=== PATIENT | male | born 2000 | race Caucasian/White ===

== ENCOUNTER 2020-08-07 17:50 | Emergency (ER) | payer OTHER, SELFPAY ==
--- NOTE | ~2020-08-07 | XR_ITS ---
EXAMINATION: 1. RADIOGRAPHS LEFT KNEE 2. RADIOGRAPHS LEFT TIBIA/FIBULA CLINICAL INFORMATION: Pain. Work injury. COMPARISON: None TECHNIQUE: 2 views of the left knee and 2 views of the left tibia/fibular were obtained. FINDINGS: No fracture or dislocation of the left knee. No suprapatellar joint effusion. Joint spaces are well-maintained without appreciable degenerative changes of the left knee. No focal soft tissue swelling of the anterior knee. No fracture of the left tibia or fibula. The left ankle is grossly unremarkable. XR/XR knee LT 2V IMPRESSION: Unremarkable radiographs of the left knee and left tibia/fibula.
--- NOTE | ~2020-08-07 | XR_ITS ---
EXAMINATION: 1. RADIOGRAPHS LEFT KNEE 2. RADIOGRAPHS LEFT TIBIA/FIBULA CLINICAL INFORMATION: Pain. Work injury. COMPARISON: None TECHNIQUE: 2 views of the left knee and 2 views of the left tibia/fibular were obtained. FINDINGS: No fracture or dislocation of the left knee. No suprapatellar joint effusion. Joint spaces are well-maintained without appreciable degenerative changes of the left knee. No focal soft tissue swelling of the anterior knee. No fracture of the left tibia or fibula. The left ankle is grossly unremarkable. XR/XR tibia fibula LT 2V IMPRESSION: Unremarkable radiographs of the left knee and left tibia/fibula.
[2020-08-07 19:38] VITALS: BP 127/72; PULSE 112; RESP 22; TEMP 37.1; O2SAT 96; BMI 32.5
[2020-08-07 19:44] VITALS: BP 136/74; PULSE 114; PULSE 86; RESP 24; TEMP 37.1; O2SAT 96
--- NOTE | 2020-08-07 20:05 | ED.GENADULT ---
HPI - General Adult General Chief complaint: Upper Respiratory Symptoms Stated complaint: Work Injury/Exposure to covid Time Seen by Provider: 08/07/20 19:50 Source: patient Mode of arrival: ambulatory Limitations: no limitations History of Present Illness HPI narrative: Patient tells me that his mom at home is COVID positive. For the last 24-48 hours he has had symptoms of cough, malaise, headache. No fevers or chills or shortness of breath or chest pain. 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 He now has pain and swelling which is worsened with weight-bearing. Related Data Home Medications Medication Instructions Recorded Confirmed No Known Home Meds 08/07/20 08/07/20 Allergies Allergy/AdvReac Type Severity Reaction Status Date / Time Penicillins [PCN] Allergy Intermediate RASH, Verified 08/07/20 19:37 ITCHING Review of Systems Review of Systems: Yes all other systems are reviewed and are negative Constitutional: Constitutional: Reports no additional constitutional complaints, Denies body ache(s), Denies chills, Denies fever(s), Reports headache(s), Reports malaise and Denies weakness Eyes: Eyes: Reports no additional eye complaints and Denies change in vision ENT: Reports system reviewed and no additional complaints, except as documented, Denies dizziness, Reports headache(s), Denies nasal congestion, Denies nasal discharge and Denies neck pain Cardiovascular: Cardiovascular: Reports no additional cardiovascular complaints, Denies chest pain, Denies leg edema and Denies dyspnea Respiratory: Respiratory: Reports no additional respiratory complaints, Reports cough and Denies dyspnea Gastrointestinal: Gastrointestinal: Reports no additional gastrointestinal complaints, Denies abdominal pain, Denies diarrhea, Denies nausea and Denies vomiting Genitourinary: Genitourinary: Denies urinary incontinence Musculoskeletal: Musculoskeletal: Reports no additional musculoskeletal complaints, Denies back pain, Reports arthralgias, Reports joint swelling, Denies neck pain, Denies numbness and Denies tingling Integumentary/Breasts: Skin/Breast: Reports system reviewed and no additional complaints, except as docu and Denies rash Neurologic: Reports system reviewed and no additional complaints, except as documented, Denies Abnormal speech present, Denies dizziness, Reports headache(s), Denies numbness, Denies tingling and Denies weakness PMFSH Past Medical History Attestation statement: The following information was validated with the patient. Source: old records reviewed and nursing notes reviewed Medical History Appendicitis Social History Social History Alcohol intake: never Smoking Status: Current every day smoker Smoked in Last 30 Days: Yes Use of substances other than those prescribed or required for medical reasons: Yes Substance Use Type: Marijuana Substance Use Frequency: Daily Last Used Substance: Hours (ago) Any prior treatment program specific to substance use: No Advance Directives: No Advance Directives Information Provided: No Physical Exam Vital Signs: Vital Signs: Last Vital Signs Temp 99.6 F 08/07/20 21:40 Pulse 102 H 08/07/20 21:40 Resp 20 08/07/20 21:40 BP 124/68 08/07/20 21:40 Pulse Ox 98 08/07/20 21:40 Body Mass Index 32.5 Const: Other: Patient has mild tachycardia but tells me he is very anxious and with some deep breaths and relaxation is heart rate improved to 86 with no intervention General: cooperative, healthy appearing, comfortable and no acute distress Orientation/consciousness: patient oriented x3 Limitations: no limitations HENMT: Head: Yes normal to inspection Ears: hearing grossly normal bilaterally General nose exam: Normal external nose present Face and sinus: Yes normal facial exam Mouth: Normal oral and palatal mucosa present Throat: Yes posterior oropharynx normal Eyes: General: appearance normal, both eyes and all related structures Pupils: Equal, round and reactive pupils present Neck: Neck: Yes normal visual inspection Chest: Chest palpation & inspection: normal inspection of the chest Resp: Effort & Inspection: normal respiratory effort Auscultation: clear to auscultation bilaterally Cardio: Rate: regular rate Rhythm: regular rhythm Peripheral pulses: Peripheral pulses 2+ throughout GI: Inspection: Yes normal to inspection Palpation (GI): Soft to palpation and nontender Auscultation: normal bowel sounds Back/Spine/Pelvis: Thoracic/Lumbar Spine: thoracic and lumbar spine normal to inspection Skin: General skin exam: no rashes or lesions noted Neuro: General: patient oriented x3, no focal motor deficits and normal sensation to monofilament Cranial nerves: Yes Equal, round and reactive pupils present Cognition (Neuro): normal cognition Speech: No Abnormal speech present Gait exam (Neuro): Normal gait present Motor exam (neuro): 5/5 motor strength present throughout Extrem: Other: To the left knee at the medial and lateral aspect there is ecchymosis. There is no appreciated swelling, erythema, warmth. There is some mild tenderness. Patient has full range of motion of the knee. There is also abrasion to the left lower extremity over the anterior aspect with full range of motion and no ecchymosis or tenderness. General: Yes normal to inspection Course Course Course Narrative: Patient here with COVID symptoms. Mom home is positive. Will check COVID screen. Well-appearing, lung sounds clear throughout. Stable vital signs. Also complaining of left lower extremity pain and swelling status post work injury yesterday. Will check imaging. 2129-Imaging unremarkable. COVID +. Stable saturations, LS CTA. NO complaints of SOB/chest pain. Reviewed worrisome signs and symptoms and when to return to the emergency department. Comfortable discharge home. Medical Decision Making Medical Records Medical records reviewed: Yes I reviewed the patient's medical records. Lab Data Lab results reviewed: Yes I reviewed the patient's lab results. Labs: Lab Results 08/07/20 Range/Units 19:54 Coronavirus (PCR) POSITIVE A (Negative) Influenza Type A (PCR) NEGATIVE (Negative) Influenza Type B (PCR) NEGATIVE (Negative) RSV RNA Qual (PCR) NEGATIVE (Negative) Imaging Data knee/tibia/fibula left x-ray: Attestation: I personally reviewed and interpreted this imaging study as follows: Radiologist's impression: [address] [id number] ReportSigned Patient: Tara Polanco YMR#: [id number]: [id number]:[id number]/Sex: 20 / MADM Date: 08/07/20Loc: [email or web address].EDAttending Dr: Ordering Physician: KRISSY FREITAS NP Date of Service: 08/07/20 Procedure(s): XR knee LT 2V Accession Number(s): [id number] cc: KRISSY FREITAS NP~ EXAMINATION: 1. RADIOGRAPHS LEFT KNEE 2. RADIOGRAPHS LEFT TIBIA/FIBULA CLINICAL INFORMATION: Pain. Work injury. COMPARISON: None TECHNIQUE: 2 views of the left knee and 2 views of the left tibia/fibular were obtained. FINDINGS: No fracture or dislocation of the left knee. No suprapatellar joint effusion. Joint spaces are well-maintained without appreciable degenerative changes of the left knee. No focal soft tissue swelling of the anterior knee. No fracture of the left tibia or fibula. The left ankle is grossly unremarkable. XR/XR knee LT 2V IMPRESSION: Unremarkable radiographs of the left knee and left tibia/fibula. Discharge Plan Discharge Clinical Impression: COVID-19 Contusion Qualifiers: Encounter type: initial encounter Contusion area: knee Laterality: left Qualified Code(s): S80.02XA - Contusion of left knee, initial encounter Patient Disposition: Home, Self-Care Instructions: Contusion in Adults (ED), COVID-19 (Coronavirus Disease 2019) (ED) Additional Instructions: Your test for COVID is positive You will need to quarentine for a total of 10 days from when your symptom started and they must be resolved prior to return to work Prescriptions: No Action No Known Home Meds RF: 0 Referrals: Physician,None [Primary Care Provider] - 2 days Stand Alone Forms: Work/School Release Interventions: ED Discharge Assessment Last Done: 08/07/20 21:42 Discharge Date/Time: 08/07/20 21:43
[2020-08-07 20:46] LABS: Influenza A PCR NEGATIVE (Negative); Influenza B PCR NEGATIVE (Negative); Resp Syncy Virus RNA Qual PCR NEGATIVE (Negative)
[2020-08-07 21:15] LABS: SARS COV2 PCR INHOUSE POSITIVE (Negative)
[2020-08-07 21:40] VITALS: BP 124/68; PULSE 102; RESP 20; TEMP 37.6; O2SAT 98
== END 2020-08-07 21:43 | disposition home or self-care (01) ==
PROVIDERS: Emergency Provider Emergency Medicine
DX: S80.02XA Contusion of left knee, initial encounter (principal); U07.1 COVID-19; M25.562 Pain in left knee; X50.0XXA Overexertion from strenuous movement or load, initial encounter; X50.3XXA Overexertion from repetitive movements, initial encounter; Y93.9 Activity, unspecified; Y92.9 Unspecified place or not applicable; Y99.0 Civilian activity done for income or pay; F17.200 Nicotine dependence, unspecified, uncomplicated; Z71.6 Tobacco abuse counseling; F12.90 Cannabis use, unspecified, uncomplicated
CPT/HCPCS: 0241U; 36415; 73560; 73590; 99285

== ENCOUNTER 2021-09-29 08:08 | Emergency (ER) | payer OTHER, SELFPAY ==
[2021-09-29 08:19] VITALS: BP 130/78; PULSE 83; RESP 18; TEMP 36.3; O2SAT 97; BMI 27.0
[2021-09-29 08:38] VITALS: BP 119/76; PULSE 62; RESP 15; TEMP 36.4; O2SAT 95
[2021-09-29 08:55] LABS: COVID-19 Test Negative (Negative); IDNOW Serial# 16C4AD1C; Influenza A Negative (Negative); Influenza B2 Negative (Negative)
--- NOTE | 2021-09-29 09:08 | ED.NAVMDI ---
HPI - Nausea/Vomiting/Diarrhea General Chief complaint: Nausea/Vomiting/Diarrhea Stated complaint: Body aches/Vomiting/Diarrhea Time Seen by Provider: 09/29/21 09:08 Source: patient and paraprofessional interpreter Mode of arrival: ambulatory Limitations: no limitations History of Present Illness HPI Narrative: 21-year-old otherwise healthy male presents to the ER with 4 days of nausea, vomiting and diarrhea. He states he was recently around his family member who had similar symptoms last week. He states the last time he vomited was yesterday. He had nonbloody loose stool again this morning and came to the ER for further evaluation. He denies any abdominal pain just an upset stomach and nausea when he smells certain foods. He denies any fever or chills. He states the worst part is the diffuse body aches and generally feeling unwell. MD elicited complaint: nausea, vomiting and diarrhea Onset (ago): day(s) (4) Description of vomiting: food contents and watery Description of diarrhea: loose Associated nausea: Yes Associated abdominal pain: No Location of pain: diffuse Pain consistency: intermittent Severity: mild Quality: aching Exacerbating factors: none Relieving factors: none Associated symptoms: myalgias, loss of appetite, malaise and nausea/vomiting Related Data Previous Rx's Medication Instructions Recorded ondansetron 4 mg disintegrating 4 mg PO Q8H PRN #5 tab 09/29/21 tablet Allergies Allergy/AdvReac Type Severity Reaction Status Date / Time Penicillins [PCN] Allergy Intermediate RASH, Verified 09/29/21 08:19 ITCHING Review of Systems Review of Systems: Constitutional: No Fever, No Chills ENT/Mouth: No sore throat, No Rhinorrhea, No Swallowing Difficulty Cardiovascular: No Chest Pain, No SOB Respiratory: No Cough, No Sputum, No Wheezing, No dyspnea Gastrointestinal: + Nausea, +Vomiting, + Diarrhea, No abdominal Pain, No Hematochezia, No Melena Genitourinary: No Dysuria, No Urinary Frequency Musculoskeletal: No joint pain, + Myalgias Skin: No Skin Lesions, No rash Neuro: No Weakness, No Numbness, No Dizziness, No Headache Heme/Lymph: No Bruising, No Lymphadenopathy Gastrointestinal: Gastrointestinal: Reports nausea PMFSH Past Medical History Medical History Appendicitis Social History Social History Alcohol intake: never Substance Use Type: Marijuana Advance Directives: No Advance Directives Information Provided: No Physical Exam Vital Signs: Vital Signs: Last Vital Signs Temp 97.5 F 09/29/21 08:38 Pulse 62 09/29/21 08:38 Resp 15 09/29/21 08:38 BP 119/76 09/29/21 08:38 Pulse Ox 95 09/29/21 08:38 BMI result Body Mass Index 27.0 Appearance: Alert. Oriented X3. No acute distress. Eyes: Pupils equal, round and reactive to light. ENT: Pharynx normal. Neck: Normal inspection. Neck supple. CVS: Normal heart rate and rhythm. Pulses normal. Respiratory: No respiratory distress. Breath sounds normal. Abdomen: Soft and nontender. +BS x4 Skin: Skin warm and dry. Normal skin color. Normal skin turgor. No rashes. Extremities: No lower extremity edema. Neuro: Oriented X 3. No motor deficit. No sensory deficit. Course Course Course Narrative: 21-year-old male presents to the ER with 4 days of intermittent nausea, vomiting, diarrhea. Last episode of vomiting was yesterday. He is tolerating p.o. today but had all episode of loose stool. His abdomen exam is benign. He appears well hydrated and well nourished. Nontoxic appearing. His vital signs are normal. He is negative for influenza a and COVID-19. Symptoms most likely due to a viral gastroenteritis given his known sick contacts. At this time he is tolerating p.o. any stable for discharge home with supportive care. MDM - Nausea/Vomiting/Diarrhea Lab Data Labs: Lab Results 09/29/21 09/29/21 Range/Units 08:25 08:25 COVID-19 ([facility]) Negative (Negative) COVID-19 Clin Com See Note Influenza Type A ([facility]) Negative (Negative) Influenza Type B ([facility]) Negative (Negative) Influenza A & B Note See Note Discharge Plan Discharge Clinical Impression: Gastroenteritis Patient Disposition: Home, Self-Care Instructions: Gastroenteritis (DC) Additional Instructions: You are negative for Influenza & COVID-19./ You most likely have a viral GI bug also known as gastroenteritis. Treatment is supportive care, symptoms usually resolve on their own in 48-72 hours. Recommend rest and plenty of oral hydration. Stick to a bland diet like soup and toast while you are not feeling well. Take the prescribed medication as needed for nausea. Recommend over the counter Pepto Bismol or Imodium for upset stomach and diarrhea. Follow up with your doctor as needed. If you develop new or worsening symptoms call 911 or come back to the ER for further evaluation. ' Eres negativo para Influenza y COVID-19./ Lo m?s probable es que tenga un bicho GI viral, tambi?n conocido mary gastroenteritis. El tratamiento es atenci?n de apoyo, los s?ntomas generalmente se resuelven por s? solos en 48 a 72 horas. Recomendable reposo y danielle hidrataci?n oral. Siga tavon dieta blanda mary sopa y tostadas mientras no se sienta camryn. [place] el medicamento recetado seg?n sea necesario para las n?useas. Recomiende Pepto Bismol o Imodium de venta sanjuanita para el malestar estomacal y la diarrea. Susy un seguimiento con oliveros m?dico seg?n sea necesario. Si desarrolla s?ntomas nuevos o que empeoran, llame al 911 o regrese a la jayme de emergencias para tavon evaluaci?n adicional. Prescriptions: New ondansetron 4 mg tablet,disintegrating 4 mg PO Q8H PRN (Reason: nausea and vomiting) Qty: 5 0RF Stand Alone Forms: Work/School Release Print Language: Frisian
== END 2021-09-29 09:29 | disposition home or self-care (01) ==
PROVIDERS: Emergency Provider Emergency Medicine
DX: K52.9 Noninfective gastroenteritis and colitis, unspecified (principal); M79.10 Myalgia, unspecified site; Z20.822 Contact with and (suspected) exposure to COVID-19
CPT/HCPCS: 87502; 87635; 99283; 99284

== ENCOUNTER 2022-02-28 22:11 | Emergency (ER) | payer OTHER, SELFPAY ==
[2022-02-28 23:11] VITALS: BP 118/60; PULSE 71; RESP 16; TEMP 37; O2SAT 96; BMI 29.8
[2022-02-28] MEDS: Lidocaine 4 % Cream KIT 1 APPL TOPICAL (23:27)
--- NOTE | 2022-02-28 23:29 | ED_ITS ---
HPI - Wound/Laceration General Chief Complaint: Wound/Laceration Stated Complaint: hit head Time Seen by Provider: 02/28/22 23:20 Source: patient Mode of arrival: ambulatory Limitations: no limitations History of Present Illness HPI narrative: 22yo male no PMH hit head on low ceiling at 3pm today no LOC no AC therapy. Waiting at [facility] came here after wait. No vomiting, no headaches, has laceration on scalp. Vaccines UTD Onset (ago): hour(s) (8.5 hours ago) Location: scalp Place: home Patient tetanus UTD: Yes Context: accidental Associated symptoms: none Treatments prior to arrival: bandage Related Data Previous Rx's Medication Instructions Recorded ondansetron 4 mg disintegrating 4 mg PO Q8H PRN nausea and 09/29/21 tablet vomiting #5 tabs Allergies Allergy/AdvReac Type Severity Reaction Status Date / Time Penicillins [PCN] Allergy Intermediate RASH, Verified 09/29/21 08:19 ITCHING Review of Systems Review of Systems: Constitutional : No Fever, No Chills, Cardiovascular : No Chest Pain, No SOB Respiratory : No Dyspnea Gastrointestinal : No abdominal pain Musculoskeletal : No Joint Swelling Skin : No rash, positive skin laceration Neuro : No Weakness, No Numbness Psych : No SI/HI PMFSH Past Medical History Attestation statement: The following information was validated with the patient. Medical History Appendicitis Social History Social History (Updated 02/28/22 @ 23:30 by Solange Durán DO) Alcohol intake: never Patient Tobacco Use Status: Never used Tobacco Substance Use Type: Marijuana Physical Exam Vital Signs: Vital Signs: Last Vital Signs Temp 98.6 F 02/28/22 23:11 Pulse 71 02/28/22 23:11 Resp 16 02/28/22 23:11 BP 118/60 02/28/22 23:11 Pulse Ox 96 02/28/22 23:11 O2 Del Method 02/28/22 23:11 BMI result Body Mass Index 29.8 Appearance: Alert. Oriented X3. No acute distress. Eyes: Pupils equal, round and reactive to light. ENT: Pharynx normal. on frontoparietal scalp horizontal 6cm laceration linear and superficial bleeding controlled Neck: Normal inspection. Neck supple. CVS: Pulses normal. Respiratory: No respiratory distress. Abdomen: Soft and nontender. Skin: Skin warm and dry. Normal skin color. Extremities: No lower extremity edema. Neuro: Oriented X 3. No motor deficit. No sensory deficit. MDM - Wound/Laceration MDM Narrative Medical decision making narrative: 22 yo male with scalp laceration of 8.5 hours old. no vomiting no headache GCS 15 no AC therapy - at this time no indication for imaging. Will need wound repair. Vaccines UTD Procedures Laceration Laceration 1: Site: scalp Size (cm): 6 Description: linear Depth: simple, single layer Local Anesthetic: other anesthetic (LMX) Pre-repair: wound explored Skin layer closed with: other ( 5 carmen) Discharge Plan Discharge Clinical Impression: Laceration Patient Disposition: Home, Self-Care Instructions: Staple Care (ED), Head Laceration (ED) Additional Instructions: return to ED for any worsening symptoms or concerns okay to shower only carmen out in 10 days Prescriptions: No Action ondansetron 4 mg tablet,disintegrating 4 mg PO Q8H PRN (Reason: nausea and vomiting) Qty: 5 0RF Stand Alone Forms: Work/School Release
== END 2022-02-28 23:44 | disposition home or self-care (01) ==
LOC: HO.ED 23:43
PROVIDERS: Emergency Provider Emergency Medicine
DX: S01.01XA Laceration without foreign body of scalp, initial encounter (principal); W22.09XA Striking against other stationary object, initial encounter; Y93.89 Activity, other specified; Y92.009 Unspecified place in unspecified non-institutional (private) residence as the place of occurrence of the external cause; Y99.9 Unspecified external cause status
CPT/HCPCS: 12002; 99282; 99284

== ENCOUNTER 2022-03-21 14:13 | Emergency (ER) | payer OTHER, SELFPAY ==
[2022-03-21 14:31] VITALS: BP 110/64; PULSE 85; RESP 16; TEMP 36.8; O2SAT 97
[2022-03-21 14:35] VITALS: BP 110/64; PULSE 85; RESP 16; TEMP 36.8; O2SAT 97; BMI 31.8
--- NOTE | 2022-03-21 14:47 | ED.WOUNDLAC ---
HPI - Wound/Laceration General Chief Complaint: Wound/Laceration Stated Complaint: head staple removal Time Seen by Provider: 03/21/22 14:31 Source: patient Mode of arrival: ambulatory Limitations: no limitations History of Present Illness HPI narrative: Patient presents to the emergency department for staple removal from a laceration on the top of his head. States he was seen here about 2 weeks ago after he struck his head on a ceiling and had carmen placed for wound closure. Denies any headaches, vision changes, dizziness, lightheadedness, redness or swelling to the site, drainage from the site, fevers, chills, numbness or tingling, neck pain, neck stiffness, nausea, vomiting. Related Data Previous Rx's Medication Instructions Recorded ondansetron 4 mg disintegrating 4 mg PO Q8H PRN nausea and 09/29/21 tablet vomiting #5 tabs Allergies Allergy/AdvReac Type Severity Reaction Status Date / Time Penicillins [PCN] Allergy Intermediate RASH, Verified 09/29/21 08:19 ITCHING Review of Systems Review of Systems: Skin: Positive laceration with carmen in place Yes all other systems are reviewed and are negative [facility] Past Medical History Attestation statement: The following information was validated with the patient. Source: old records reviewed Medical History Appendicitis Social History Social History Alcohol intake: never Patient Tobacco Use Status: Never used Tobacco Substance Use Type: Marijuana Advance Directives: No Advance Directives Information Provided: No Physical Exam Vital Signs: Vital Signs: Last Vital Signs Temp 98.2 F 03/21/22 14:35 Pulse 85 03/21/22 14:35 Resp 16 03/21/22 14:35 BP 110/64 03/21/22 14:35 Pulse Ox 97 03/21/22 14:35 O2 Del Method 03/21/22 14:35 BMI result Body Mass Index 31.8 Vital signs have been reviewed as normal and appeared to be correct. Blood pressure normal.? Heart rate normal.? Respiration rate normal. Temperature normal.? Oxygen saturation normal. Appearance: Alert.?Oriented to person, place and time. No acute distress.?Normal affect. Head: Laceration healed, no erythema, warmth, swelling, drainage. Five carmen intact, non imbedded to the midline frontal scalp. Eyes: Pupils equal, round and reactive to light.? ENT: Pharynx normal.?? Neck: Normal inspection.? Neck supple.?? CVS: Heart sounds normal. Normal heart rate and rhythm.? Pulses normal.?? Respiratory: No respiratory distress.? Lung sounds clear to auscultation bilaterally?? Abdomen: Soft and non-tender. Skin: Skin warm and dry.? Normal skin color.? Extremities: No lower extremity edema.? Neuro: Moves all extremities spontaneously. Sensation intact bilaterally. CN II-XII intact. No focal neuro deficits. Ambulates with normal steady gait. Course Course Course Narrative: Patient is a 22 old male presenting to emergency department for staple removal. He was seen in the emergency department 3 weeks ago 02/28/2022 after sustaining a laceration to the top of his head that he struck on a low ceiling. Five carmen were placed for wound closure and was advised to come to the emergency department in 10 days for removal. Though as it has exceeded the 10 days as recommended, the insertion sites are clear from sign of infection, no erythema, swelling, warmth, carmen are not imbedded into the scalp at this time. Able to remove 5 carmen without complication. Patient stable for discharge home. [facility] - Wound/Laceration Medical Records Attestation: I reviewed the patient's medical records. Discharge Plan Discharge Clinical Impression: Laceration Patient Disposition: Home, Self-Care Additional Instructions: You had the carmen removed from the laceration to the top of your head. The laceration appears to have healed well. There is no concern for infection at this time. Please return to emergency department with any new or worsening symptoms or concerns. Prescriptions: No Action ondansetron 4 mg tablet,disintegrating 4 mg PO Q8H PRN (Reason: nausea and vomiting) Qty: 5 0RF Interventions: ED Discharge Assessment Last Done: 03/21/22 15:00 Discharge Date/Time: 03/21/22 15:01
== END 2022-03-21 15:01 | disposition home or self-care (01) ==
PROVIDERS: Emergency Provider Emergency Medicine
DX: Z48.02 Encounter for removal of sutures (principal); S01.01XD Laceration without foreign body of scalp, subsequent encounter; W22.09XD Striking against other stationary object, subsequent encounter
CPT/HCPCS: 99282; 99283

== ENCOUNTER 2022-05-20 08:47 | Emergency (ER) | payer OTHER, SELFPAY ==
[2022-05-20 09:28] VITALS: BP 109/39; PULSE 97; RESP 16; TEMP 35.8; O2SAT 98; BMI 27.5
--- NOTE | 2022-05-20 10:02 | ED_ITS ---
HPI - General Adult General Chief complaint: Neck Pain/Injury Stated complaint: ? Abscess Back of Left Shoulder Time Seen by Provider: 05/20/22 09:36 Source: patient Mode of arrival: ambulatory Limitations: no limitations History of Present Illness HPI narrative: 22-year-old male with no significant past medical history presents to the emergency department today for question of an abscess on his upper back/left shoulder. He states he noted swelling and discomfort 2-3 days ago, however; he had to work so he did not seek treatment at that time. He denies any known insect bites or injury to the area. He denies fever, chills, rashes, or any other sores/lesions. Onset (ago): day(s) Location: back and left Related Data Previous Rx's Medication Instructions Recorded ondansetron 4 mg disintegrating 4 mg PO Q8H PRN nausea and 09/29/21 tablet vomiting #5 tabs Allergies Allergy/AdvReac Type Severity Reaction Status Date / Time Penicillins [PCN] Allergy Intermediate RASH, Verified 09/29/21 08:19 ITCHING Review of Systems Review of Systems: Yes all other systems are reviewed and are negative Constitutional: Constitutional: Reports no additional constitutional complaints, Reports chills and Reports fever(s) Eyes: Eyes: Reports no additional eye complaints and Reports change in vision ENT: Reports system reviewed and no additional complaints, except as documented and Reports Normal hearing present Cardiovascular: Cardiovascular: Reports no additional cardiovascular complaints Respiratory: Respiratory: Reports no additional respiratory complaints, Denies cough and Denies wheezing Musculoskeletal: Musculoskeletal: Reports no additional musculoskeletal complaints Integumentary/Breasts: Skin/Breast: Reports system reviewed and no additional complaints, except as docu, Denies rash and Reports sores Neurologic: Reports system reviewed and no additional complaints, except as documented and Reports Normal hearing present Allergic/Immunologic: Allergic/Immunologic: Denies wheezing PMFSH Past Medical History Attestation statement: The following information was validated with the patient. Source: old records reviewed Medical History Appendicitis Social History Social History Alcohol intake: never Patient Tobacco Use Status: Never used Tobacco Substance Use Type: Marijuana Advance Directives: No Advance Directives Information Provided: No Physical Exam ED Vital Signs: Vital Signs - 24 hr 05/20/22 09:28 Temperature 96.5 F L Pulse Rate 97 Respiratory Rate 16 Blood Pressure 109/39 L Pulse Oximetry 98 Oxygen Delivery Method Room Air BMI result Body Mass Index 27.5 Const General: cooperative, no acute distress, alert and awake Nutritional Appearance: well nourished Orientation/consciousness: patient oriented x3 Limitations: no limitations HENMT Head: Yes normal to inspection and Yes atraumatic Ears: hearing grossly normal bilaterally and external ears normal General nose exam: Normal external nose present Face and sinus: Yes face symmetric Eyes General: appearance normal, both eyes and all related structures Alignment and Position: alignment normal Periorbital: periorbital findings normal Eyelids: Yes eyelids normal Conjunctivae: conjunctivae normal Sclerae: sclerae normal Pupils: Equal, round and reactive pupils present EOM: EOMs intact bilaterally Neck Neck: Yes normal visual inspection and Yes full ROM Chest Chest palpation & inspection: normal inspection of the chest Resp Effort & Inspection: normal respiratory effort and able to speak in complete sentences Auscultation: clear to auscultation bilaterally, no crackles, no rhonchi and no wheezes Cardio Rate: regular rate Rhythm: regular rhythm Back/Spine/Pelvis Cervical Spine: cervical ROM normal Thoracic/Lumbar Spine: thoraco-lumbar ROM normal Skin Lesions: lesion noted (pustule left upper back/shoulder) Rashes: no rashes Wounds: no wounds Neuro General: patient oriented x3 Cranial nerves: Yes Equal, round and reactive pupils present and Yes Normal hearing present Cognition (Neuro): normal cognition Gait exam (Neuro): Normal gait present Motor exam (neuro): 5/5 motor strength present throughout Extrem General: Yes normal to inspection, Yes full ROM and Yes capillary refill normal Psych Appearance: grossly normal Mental Status: mental status grossly normal Speech and movement: Normal speech and movement present Affect: normal affect Attitude: cooperative Procedures Procedure Narrative Procedure Narrative: 2 cm cyst-like pustule present on left upper back/shoulder freely movable with a visable central punctum. White waxy substance obtained with manual pressure applied to lesion. Left upper back/shoulder cleansed with betadine. 18 g needle used to further enlarge punctum with moderate volume of white waxy discharge. Cleansed with betadine and bandaid applied. Medical Decision Making Medical Decision Making MDM Narrative: A 22-year-old male patient presenting to the emergency department for question of an abscess on his upper back/left shoulder. Suspecting sebceous cyst on exam as able to express white waxy substance with manual pressure. Low suspicion for infectious abscess based on physical exam. Plan to discharge pt with instructions for cyst management with warm compresses appled to left upper back/shoulder to further express debris. Physical exam, history and plan discussed with patient with no unanswered questions. Educated antibiotics are not necessary for treatment of this cyst. Educated to return to the emergency department with warmth and redness surrounding cyst or cyst growing larger or more uncomfortable. Recommended to follow-up with your primary care provider for further recommendations and management. Differential Diagnoses: Differential diagnosis (sebaceous cyst) Differential Diagnosis: The differential diagnosis associated with the patient?s presentation includes: Discharge Plan Discharge Clinical Impression: Sebaceous cyst Patient Disposition: Home, Self-Care Instructions: Cyst (ED) Additional Instructions: No antibiotics needed at this time. Please return to the emergency department with warmth and redness surrounding cyst or cyst growing larger or more uncomfortable. Please follow-up with your primary care provider for further recommendations and management. Prescriptions: No Action ondansetron 4 mg tablet,disintegrating 4 mg PO Q8H PRN (Reason: nausea and vomiting) Qty: 5 0RF Referrals: [facility] [place] Group] [facility]Provider Group] [facility] [Provider Group] Stand Alone Forms: Work/School Release Print Language: Persian
== END 2022-05-20 11:11 | disposition home or self-care (01) ==
PROVIDERS: Emergency Provider Emergency Medicine Emergency Medical Services
DX: L72.3 Sebaceous cyst (principal); M54.50 Low back pain, unspecified; Z79.899 Other long term (current) drug therapy
CPT/HCPCS: 99282